=== PATIENT | male | born 1995 | race Caucasian/White ===

== ENCOUNTER 2016-12-12 23:26 | Emergency (ER) | payer OTHER ==
[~2016-12-12] VITALS: Ht 182.9 cm; Wt 73.6 kg
[2016-12-12 23:29] VITALS: TEMP 98.3
[2016-12-12] MEDS ORDERED: ZITHROMAX Z PA250 MG PO (23:59)
[2016-12-13 00:17] VITALS: BP 149/68; PULSE 106
== END 2016-12-13 00:17 | disposition home or self-care (01) ==
LOC: COL.ER 23:26
DX: R04.0 Epistaxis (principal); J06.9 Acute upper respiratory infection, unspecified